=== PATIENT | female | born 1990 | race Caucasian/White ===

== ENCOUNTER 2017-04-19 14:05 | Emergency (ER) | payer MEDICAID, BC ==
[2017-04-19 14:10] VITALS: BP 120/81; PULSE 88; RESP 16; TEMP 97.9; O2SAT 99
--- NOTE | 2017-04-19 14:55 | EDPHY ---
H & P Time Seen by Provider: 04/19/17 14:11 HPI/ROS: CHIEF COMPLAINT: Here for x-ray HISTORY OF PRESENT ILLNESS: 26-year-old female presents emergency department requesting an x-ray of her sesamoid bone on her left foot. Patient had a sesamoid fracture 6 weeks ago after running on a treadmill and saw an orthopedist twice while in [place]. Patient is in [place] for the summer, she was instructed by her orthopedist to follow up with an orthopedist and to get a repeat x-ray at this time, patient has been unable to make an appointment to see an orthopedist as they do not take her [place] insurance. Patient reports her foot is feeling better, no increased pain, no numbness or tingling in her foot, no new complaints. Patient does not have copies of her other x-rays comparison. Smoking Status: Never smoked Physical Exam: GEN: Awake, alert, oriented, no acute distress RESP: nl resp effort MSK: Left foot with full range of motion, mild tenderness to palpation over says moist, no swelling or erythema, cap refill less than 2 seconds, sensation intact to light touch, 2+ pedal pulses SKIN: No break in skin Constitutional: Initial Vital Signs Temperature (C) 36.6 C 04/19/17 14:07 Heart Rate 88 04/19/17 14:07 Respiratory Rate 16 04/19/17 14:07 Blood Pressure 120/81 H 04/19/17 14:07 O2 Sat (%) 99 04/19/17 14:07 O2 Delivery Mode Room Air Allergies/Adverse Reactions: Sulfa (Sulfonamide Antibiotics) Allergy (Verified 04/19/17 14:10) Home Medications: Medication Instructions Recorded Control 04/19/17 MULTI [id number] 0.25 MG 04/19/17 Vit B 12 04/19/17 MDM/Departure - MDM Imaging: I viewed and interpreted images myself ED Course/Re-evaluation: 26-year-old female presents to the ER requesting x-ray of her left says moist bones so she consents to her orthopedist back home in [place]. She has no complaints, reports her pain is improving and has no new symptoms or concerns. - Depart Disposition: Home, Routine, Self-Care Clinical Impression: Fracture follow-up Condition: Good Instructions: Foot Fracture in Adults (ED) Additional Instructions: Follow up with your orthopedist as planned. Send him a copy of your x-rays. Return to the emergency department for any new symptoms or concerns. Referrals: NONE *PRIMARY CARE P,. [Primary Care Provider] - As per Instructions
== END 2017-04-19 15:00 | disposition home or self-care (01) ==
DX: Z87.81 Personal history of (healed) traumatic fracture (principal)

== ENCOUNTER 2017-06-28 14:03 | Emergency (ER) | payer MEDICAID, BC ==
[2017-06-28 14:17] VITALS: RESP 16
[2017-06-28] MEDS ORDERED: IBUPROFEN 600 MG TAB PO ONE ×2 (14:56)
--- NOTE | 2017-06-28 15:30 | EDPHY ---
H & P Stated Complaint: tubing-hit occiput on rock no loc- no neck pain,no lac Time Seen by Provider: 06/28/17 15:30 - Personal History LMP (Females 10-55): 22-28 Days Ago Current Tetanus/Diphtheria Vaccine: Unsure Current Tetanus Diphtheria and Acellular Pertussis (TDAP): Unsure - Medical/Surgical History Hx Asthma: No Hx Chronic Respiratory Disease: No Hx Diabetes: No Hx Cardiac Disease: No Hx Renal Disease: No Hx Cirrhosis: No Hx Alcoholism: No Hx HIV/AIDS: No Hx Splenectomy or Spleen Trauma: No Other PMH: PMH;none. PSH:none - Social History Smoking Status: Never smoked Constitutional: Initial Vital Signs Temperature (C) 36.0 C 06/28/17 14:14 Heart Rate 77 06/28/17 14:14 Respiratory Rate 16 06/28/17 14:14 Blood Pressure 105/71 06/28/17 14:14 O2 Sat (%) 98 06/28/17 14:14 O2 Delivery Mode Room Air Allergies/Adverse Reactions: Sulfa (Sulfonamide Antibiotics) Allergy (Verified 04/19/17 14:10) Home Medications: Medication Instructions Recorded Control 04/19/17 Hydrocodone/APAP 5/325 [[place] 1 - 2 each PO Q4-6PRN PRN #11 tab 06/28/17 5/325] Medical Decision Making ED Course/Re-evaluation: CHIEF COMPLAINT: Traumatic headache HISTORY OF PRESENT ILLNESS: The patient is a 26 y/o female complaining of an occipital headache after [place]. [place] and [place] striking the back of her head on a rock. She denies loss of consciousness, weakness, paresthesias , vision changes, abdominal pain, chest pain, or other trauma. She can remember the entire event and was ambulatory after the incident. She is otherwise healthy. REVIEW OF SYSTEMS: A 10 point review of systems was performed and is negative with the exception of the elements mentioned in the history of present illness. PHYSICAL EXAM: HR, BP, O2 Sat, RR. Temp noted General Appearance: Alert, well hydrated, appropriate, and non-toxic appearing. Head: No lacerations or abrasions, small occipital hematoma with mild tenderness. Eyes: Pupils equal, round, reactive to light and accommodation, EOMI, no trauma , no injection. Ears: Clear bilaterally, no perforation, normal landmarks Nose: Atraumatic, no rhinorrhea, clear. Throat: Mucus membranes moist. Neck: Supple, no midline tenderness, mild lateral paraspinous tenderness, no lymphadenopathy. Respiratory: No retractions, no distress, no wheezes, and no accessory muscle use. Lungs are clear to auscultation bilaterally. Cardiovascular: Regular rate and rhythm, no murmurs, rubs, or gallops. Good capillary refill all extremities. Gastrointestinal: Abdomen is soft, nontender, non-distended, no masses, no rebound, no guarding, no peritoneal signs. Musculoskeletal: Normal active ROM of all extremities, atraumatic. Neurological: Alert, appropriate, and interactive. Nonfocal neuro exam. Skin: No rashes, good turgor, no nodules on palpation. Past medical history: Denies Past surgical history: Denies Family history: noncontributory Social history: Lives in [place] DIFFERENTIAL DIAGNOSIS: The differential diagnosis for the patient's trauma included but was not limited to intracranial injury, long bone and pelvic bone fractures, spinal injury, intra-abdominal injury, and intra-thoracic injury. MEDICAL DECISION MAKING: This is a healthy 26 y/o female who presents with an occipital headache secondary to striking the back of her head on a rock this afternoon. She has a very small occipital hematoma with no overlying abrasion or laceration. She is neurovascularly intact, did not lose consciousness, and does not have amnesia. She has no midline spinal tenderness. She does not meet criteria for head and neck imaging per [place] [facility] guidelines. Plan for treatment with ice, ibuprofen , prepack Vicodin, and head injury follow up if needed. Return precautions given. She is comfortable with this plan. - Data Points Medications Given: Discontinued Medications Hydrocodone Bitart/Acetaminophen ([place] 5/325mg Prepack#6) 1 btl TAKEHOME EDNOW ONE Stop: 06/28/17 15:39 Last Admin: 06/28/17 15:48 Dose: 1 btl Ibuprofen (Motrin) 600 mg PO EDNOW ONE Stop: 06/28/17 14:57 Last Admin: 06/28/17 14:57 Dose: 600 mg Departure - Departure Disposition: Home, Routine, Self-Care Clinical Impression: Head injury Qualifiers: Encounter type: initial encounter Qualified Code(s): S09.90XA - Unspecified injury of head, initial encounter Hematoma of occipital surface of head Qualifiers: Encounter type: initial encounter Qualified Code(s): S00.83XA - Contusion of other part of head, initial encounter Condition: Good Instructions: Hydrocodone/Acetaminophen (By mouth), Concussion (ED), Head Injury (ED) Additional Instructions: 1. Use 600mg ibuprofen every 6-8 hours as needed for pain for the next few days. 2. Apply ice to sore areas. Expect to feel more sore over the next 1-2 days. 3. Follow up with a primary care provider for unimproved symptoms over the next week. 4. Return to the ED for any worsening of condition. Referrals: Yris Mitchell MD [Medical Doctor] - As per Instructions [facility],. [Clinic] - As per Instructions Prescriptions: Hydrocodone/APAP 5/325 [[place] 5/325] 1 - 2 each PO Q4-6PRN PRN #11 tab PRN Reason: Pain, Moderate Report Scribed for: Caleb Post Report Scribed by: Divina Alvarado Date of Report: 06/28/17 Time of Report: 15:38
[2017-06-28] MEDS ORDERED: HYDROCOD/APAP 5/325 PREPACK#6 BTL TAKEHOME ONE (15:38)
[2017-06-28 15:53] VITALS: BP 127/87; PULSE 67; TEMP 98.8; O2SAT 97
== END 2017-06-28 15:53 | disposition home or self-care (01) ==
DX: S09.90XA Unspecified injury of head, initial encounter (principal); S00.83XA Contusion of other part of head, initial encounter; W18.00XA Striking against unspecified object with subsequent fall, initial encounter; Y92.828 Other wilderness area as the place of occurrence of the external cause